=== PATIENT | female | born 1980 | race African-American/Black ===

== ENCOUNTER 2017-07-09 07:49 | Emergency (ER) | payer MEDICAID ==
[2017-07-09 07:56] VITALS: BP 129/70
--- NOTE | 2017-07-09 08:22 | ER Document Report ---
ED General - General Chief Complaint: Arm Problem Stated Complaint: ARM PAIN Time Seen by Provider: 07/09/17 08:03 Notes: 36-year-old female [id number] obese lady presents with right shoulder pain, posterior lateral worse with movement unable to elevate her arm now, onset 3 days ago and worsening. She cannot sleep on that side. She denies injuries. She denies gout. No fevers or chills. No numbness or tingling in the hand. Has neck pain or history of surgical critical apathy. - Related Data Allergies/Adverse Reactions: amoxicillin Allergy (Verified 07/09/17 08:15) Past Medical History - Social History Smoking Status: Unknown if Ever Smoked Chew tobacco use (# tins/day): No Frequency of alcohol use: None Drug Abuse: None Family History: None Patient has suicidal ideation: No Patient has homicidal ideation: No Renal/ Medical History: Denies: Hx Peritoneal Dialysis Review of Systems - Review of Systems Notes: REVIEW OF SYSTEMS GEN: Denies fever, chills, weight loss ENT: Denies sore throat, nasal discharge, ear pain EYES: Denies blurry vision, eye pain, discharge CV: Denies chest pain, palpitations, edema RESP: Denies cough, shortness of breath, wheezing GI: Denies abdominal pain, nausea, vomiting, diarrhea MSK: Right shoulder pain SKIN: Denies rash, skin lesions LYMPH: Denies swollen glands/lymph nodes NEURO: Denies headache, focal weakness or numbness, dizziness PSYCH: Denies depression, suicidal or homicidal ideation PHYSICAL EXAMINATION General: No acute distress, well-nourished Head: Atraumatic, normocephalic ENT: Mouth normal, oropharynx moist, no exudates or tonsillar enlargement Eyes: Conjunctiva normal, pupils equal, lids normal Neck: No JVD, supple, no guarding CVS: Normal rate, regular rhythm, no murmurs Resp: No resp distress, equal and normal breath sounds bilaterally GI: Nondistended, soft, no tenderness to palpation, no rebound or guarding Ext: No deformities, no edema, redness of the anterior lateral shoulder without crepitus. Decreased range of motion actively, passively she can range it almost all the way although with pain. No crepitus. T Back: No CVA or midline TTP Skin: No rash, warm Lymphatic: No lymphadeopathy noted Neuro: Awake, alert. Face symmetric. GCS 15. Normal finger spread thumbs up and sensation in the right hand Physical Exam - Vital signs Vitals: Temp Pulse Resp BP Pulse Ox 98.1 F 63 18 129/70 H 96 07/09/17 07:56 07/09/17 07:56 07/09/17 07:56 07/09/17 07:56 07/09/17 07:56 Course - Re-evaluation Re-evalutation: 07/09/17 08:19 Atraumatic right shoulder pain and obese female. Likely calcific tendinitis versus rotator cuff tendinopathy without injury. Doubt dislocation or neurologic optimize. Calcific tendinitis versus rotator cuff tendinopathy, doubt septic arthritis. X-ray Toradol reassess. 07/09/17 08:33 X-ray shows calcium deposits consideration is likely calcific tendinosis. NSAIDs or the referral. Discharge home with sling for comfort. I have discussed with the patient there likely diagnosis, aftercare plan, follow-up plans and my usual and customary return precautions. They verbalized understanding of this. - Vital Signs Vital signs: Temp Pulse Resp BP Pulse Ox 98.1 F 63 18 129/70 H 96 07/09/17 07:56 07/09/17 07:56 07/09/17 07:56 07/09/17 07:56 07/09/17 07:56 Discharge - Discharge Clinical Impression: Calcific tendinitis Shoulder pain, acute Qualifiers: Laterality: right Qualified Code(s): M25.511 - Pain in right shoulder Condition: Good Disposition: HOME, SELF-CARE Instructions: Rotator Cuff Injury ([facility]) Additional Instructions: I am referring you to orthopedics so that you may have further evaluation and therapy for your shoulder injury. Prescriptions: Ibuprofen 400 mg PO Q6 #30 tablet Referrals: GIOVANNI DECKER MD [ACTIVE STAFF] - Follow up in 1 week
--- NOTE | 2017-07-09 08:45 | RADIOLOGY REPORT (SQ) ---
EXAM DESCRIPTION: SHOULDER RIGHT 2 OR MORE VIEWS COMPLETED DATE/TIME: 07/09/2017 8:33 am REASON FOR STUDY: calcific tendonitis?? COMPARISON: None. NUMBER OF VIEWS: Three views. TECHNIQUE: Internal rotation, external rotation, and Y view images acquired of the right shoulder. LIMITATIONS: None. FINDINGS: MINERALIZATION: Normal. BONES: No acute fracture or dislocation. No worrisome bone lesions. No significant osteophytes. GLENOHUMERAL JOINT: No significant findings. ACROMIOCLAVICULAR JOINT: No large osteophytes. SOFT TISSUES: Calcium deposit along the expected location of the rotator cuff typical of calcific ten dinitis. VISUALIZED RIBS, SPINE, AND LUNG: No other significant finding. OTHER: No other significant finding. IMPRESSION: Calcific tendinitis. TECHNICAL DOCUMENTATION: JOB ID: [id number] [email or web address]- All Rights Reserved
== END 2017-07-09 08:47 | disposition home or self-care (01) ==
LOC: ER 07:49
DX: M75.31 Calcific tendinitis of right shoulder (principal); M25.511 Pain in right shoulder; E66.9 Obesity, unspecified; Z68.44 Body mass index [BMI] 60.0-69.9, adult; Z88.0 Allergy status to penicillin
CPT/HCPCS: 99283

== ENCOUNTER 2017-10-06 21:35 | Emergency (ER) | payer SELFPAY ==
--- NOTE | 2017-10-06 22:28 | RADIOLOGY REPORT (SQ) ---
EXAM DESCRIPTION: WRIST LEFT 3 VIEWS COMPLETED DATE/TIME: 10/06/2017 9:57 pm REASON FOR STUDY: Pain with movement COMPARISON: None. NUMBER OF VIEWS: Three views. TECHNIQUE: AP, lateral, and oblique radiographic images acquired of the left wrist. LIMITATIONS: None. FINDINGS: MINERALIZATION: Normal. BONES: No acute fracture or dislocation. 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 Normal ali gnment. SOFT TISSUES: No soft tissue swelling. No foreign body. OTHER: No other significant finding. IMPRESSION: NO RADIOGRAPHIC EVIDENCE OF ACUTE INJURY. TECHNICAL DOCUMENTATION: JOB ID: [id number] 2010 [employer]- All Rights Reserved Reading location - IP/workstation name: [facility]
[2017-10-06] MEDS ORDERED: OXYCODONE-ACETAMINOPHEN 5-325 MG TABLET PO ONE (23:03)
[2017-10-06] MEDS ORDERED: KETOROLAC TROMETHAMINE 60 MG/2 ML SDV IM ONE (23:03)
--- NOTE | 2017-10-06 23:08 | ER Document Report ---
HPI - HPI Patient complains to provider of: Left wrist pain Onset: Other - 2 days Onset/Duration: Persistent, Worse Quality of pain: Sharp Pain Level: 5 Context: Patient complains of left wrist pain for the past 2 days. Pain increases with any movement of her wrist. Patient denies any fever. Patient denies any history of IV drug use. Associated Symptoms: Other - Left wrist pain. denies: Fever Exacerbated by: Movement Relieved by: Remaining still Similar symptoms previously: No Recently seen / treated by doctor: No - ROS ROS below otherwise negative: Yes Systems Reviewed and Negative: Yes All other systems reviewed and negative - MUSCULOSKELETAL Musculoskeletal: REPORTS: Extremity pain - DERM Skin Color: Normal Skin Problems: None Past Medical History - General Information source: Patient - Social History Smoking Status: Current Every Day Smoker Smoking Education Provided: Yes Occupation: [employer] Family History: None - Medical History Medical History: Negative Renal/ Medical History: Denies: Hx Peritoneal Dialysis Past Surgical History: Reports: Hx Section Vertical Provider Document - CONSTITUTIONAL Agree With Documented VS: Yes Exam Limitations: No Limitations General Appearance: WD/WN, No Apparent Distress - INFECTION CONTROL TRAVEL OUTSIDE OF THE [place] IN LAST 30 DAYS: No - HEENT HEENT: Atraumatic, Normocephalic - NECK Neck: Normal Inspection - RESPIRATORY Respiratory: Breath Sounds Normal, No Respiratory Distress - CARDIOVASCULAR Cardiovascular: Regular Rate, Regular Rhythm Pulses: Normal: Radial - BACK Back: Normal Inspection - MUSCULOSKELETAL/EXTREMETIES Musculoskeletal/Extremeties: MAEW, Tender - Left wrist tenderness over volar aspect, no edema, normal skin color and temperature. Tenderness increases with flexion, extension, supination and pronation. Positive Tinel sign, No Edema. negative: Eccymosis - NEURO Level of Consciousness: Awake, Alert, Appropriate Motor/Sensory: No Motor Deficit - DERM Integumentary: Warm, Dry, No Rash Course - Re-evaluation Re-evalutation: 10/06/17 23:05 Reviewed patient's x-ray, no concern for fracture or obvious bony abnormality. No concern for septic joint or flexor tenosynovitis. Patient afebrile, joint is not hot red or swollen. Patient advised to follow-up with orthopedic doctor for further evaluation. Patient verbalized understanding and agrees with plan of care. Controlled substance database reviewed - Vital Signs Vital signs: Temp Pulse Resp BP Pulse Ox 98.5 F 66 20 151/78 H 96 10/06/17 22:09 10/06/17 22:09 10/06/17 22:09 10/06/17 22:09 10/06/17 22:09 - Diagnostic Test Radiology reviewed: Image reviewed, Reports reviewed Procedures - Immobilization Left Wrist Pre-Proc Neuro Vasc Exam: Normal Immobilizer type: Cock-up Performed by: RN Post-Proc Neuro Vasc Exam: Normal Alignment checked and good: Yes Discharge - Discharge Clinical Impression: Left wrist pain, Tendonitis Condition: Stable Disposition: HOME, SELF-CARE Instructions: Anti-Inflammatory Medication ([facility]), Oral Narcotic Medication ([facility] ), Temporary Splint ([facility]), Tendonitis ([facility]) Additional Instructions: Return immediately for any new or worsening symptoms Followup with your primary care provider, call tomorrow to make a followup appointment Wear splint for the next 4-5 days and then remove. Follow-up with orthopedic doctor for any continued pain or problems Avoid repetitive activities with wrist Prescriptions: Naproxen [Naprosyn 250 Nmg Tablet] 1 tab PO BID #14 tablet Oxycodone HCl/Acetaminophen [Percocet 5-325 mg Tablet] 1 tab PO ASDIR PRN #15 tablet PRN Reason: Forms: Smoking Cessation Education, Return to Work Referrals: [facility] [Provider Group] - Follow up as needed [facility] [Provider Group] - Follow up as needed [facility] [Provider Group] - 10/08/17
[2017-10-06 23:38] VITALS: BP 122/87
== END 2017-10-06 23:38 | disposition home or self-care (01) ==
LOC: ER 21:35
DX: M77.9 Enthesopathy, unspecified (principal); M25.532 Pain in left wrist; F17.200 Nicotine dependence, unspecified, uncomplicated
CPT/HCPCS: 99283; 96372; 73110; L3908; J1885

== ENCOUNTER 2019-04-27 11:28 | Emergency (ER) | payer SELFPAY ==
[2019-04-27] MEDS ORDERED: NORMAL SALINE 1000 ML 1,000 ML IV ONE ×3 (11:41→14:25)
[2019-04-27] MEDS ORDERED: ONDANSETRON HCL INJ/PF 4 MG/2 ML SDV IV ONE (11:41)
[2019-04-27] MEDS ORDERED: MORPHINE SULFATE 10 MG/ML INJ IV ONE (11:41)
--- NOTE | 2019-04-27 11:43 | ER Document Report ---
ED Medical Screen (RME) - General Chief Complaint: Vomiting Stated Complaint: VOMITING Time Seen by Provider: 04/27/19 11:38 Notes: Patient is a 38-year-old female who presents to the emergency department with a chief complaint of vomiting. Patient reports yesterday she did have right lower back pain and right flank pain. Patient reports she feels like she is having increased urinary frequency. Patient reports this morning she woke up and started vomiting about 1 hour prior to arrival. Patient reports she has nonstop vomiting for 1 hour. Patient states she has never had this happen to her before. Patient denies fever. Patient denies abdominal pain. TRAVEL OUTSIDE OF THE [place] IN LAST 30 DAYS: No - Related Data Allergies/Adverse Reactions: amoxicillin Allergy (Verified 07/09/17 08:15) Past Medical History Renal/ Medical History: Denies: Hx Peritoneal Dialysis Past Surgical History: Reports: Hx Section Physical Exam - Back Notes: Right CVA tenderness, tenderness to right lower back Course - Re-evaluation Re-evalutation: 04/27/19 11:42 Patient actively vomiting bile in triage. Will start basic labs, IV fluids and anti-nausea medication and pain medication. I have greeted and performed a rapid initial assessment of this patient. A comprehensive ED assessment and evaluation of the patient, analysis of test results and completion of the medical decision making process will be conducted by additional ED providers.
[2019-04-27 12:20] LABS: ABSOLUTE LYMPHOCYTES (AUTO) 1.8 10^3/uL (0.5-4.7); ABSOLUTE MONOCYTES (AUTO) 0.3 10^3/uL (0.1-1.4); ABSOLUTE NEUT (AUTO) 3.3 10^3/uL (1.7-8.2); BASOPHILS % (AUTO) 0.4 % (0-2); EOSINOPHILS % (AUTO) 0.8 % (0-6); HEMATOCRIT 37.9 % (36.0-47.0); HEMOGLOBIN 12.3 g/dL (12.0-15.5); LYMPHOCYTES % (AUTO) 32.6 % (13-45); MEAN CORPUSCULAR HEMOGLOBIN 26.6 pg (27.0-33.4); MEAN CORPUSCULAR HGB CONC 32.5 g/dL (32.0-36.0); MEAN CORPUSCULAR VOLUME 82 fl (80-97); MONOCYTES % (AUTO) 5.2 % (3-13); PLATELET COUNT 264 10^3/uL (150-450); RED BLOOD COUNT 4.64 10^6/uL (3.72-5.28); RED CELL DISTRIBUTION WIDTH 16.3 % (11.5-14.0); TOTAL CELLS COUNTED % (AUTO) 100 %; WHITE BLOOD COUNT 5.4 10^3/uL (4.0-10.5)
[2019-04-27 12:37] LABS: ALBUMIN 3.8 g/dL (3.5-5.0); ALKALINE PHOSPHATASE 55 U/L (38-126); ANION GAP 7 (5-19); ASPARTATE AMINO TRANSFERASE 18 U/L (14-36); BILIRUBIN,DIRECT 0.1 mg/dL (0.0-0.4); BILIRUBIN,TOTAL 0.3 mg/dL (0.2-1.3); BLOOD UREA NITROGEN 11 mg/dL (7-20); CARBON DIOXIDE 28 mmol/L (22-30); CHLORIDE 106 mmol/L (98-107); GLUCOSE 129 mg/dL (75-110); POTASSIUM 3.8 mmol/L (3.6-5.0); TOTAL PROTEIN 7.2 g/dL (6.3-8.2)
[2019-04-27] MEDS ORDERED: KETOROLAC TROMETHAMINE INJ/PF 30 MG/1 ML SDV IV ONE (12:44)
[2019-04-27 14:47] LABS: APPEARANCE,URINE CLOUDY; BILIRUBIN,URINE NEGATIVE (NEGATIVE); COLOR,URINE YELLOW; GLUCOSE, URINE NEGATIVE (NEGATIVE); KETONES,URINE NEGATIVE (NEGATIVE); LEUKOCYTE ESTERASE,URINE NEGATIVE (NEGATIVE); NITRITE,URINE NEGATIVE (NEGATIVE); PROTEIN,URINE NEGATIVE (NEGATIVE); URINE SPECIFIC GRAVITY 1.018; UROBILINOGEN,URINE NEGATIVE mg/dL (<2.0)
--- NOTE | 2019-04-27 15:45 | RADIOLOGY REPORT (SQ) ---
EXAM DESCRIPTION: CT ABD/PELVIS NO ORAL OR IV COMPLETED DATE/TIME: 04/27/2019 3:27 pm REASON FOR STUDY: Right flank pain with hematuria COMPARISON: None. TECHNIQUE: CT scan of the abdomen and pelvis performed without intravenous or oral contrast. Images reviewed with lung, soft tissue, and bone windows. Reconstructed coronal and sagittal MPR images revi ewed. All images stored on PACS. All CT scanners at this facility use dose modulation, iterative reconstruction, and/or weight based d osing when appropriate to reduce radiation dose to as low as reasonably achievable (ALARA). [facility]: Dose Right [facility]: CareDose [facility]: Dose Right [facility]: Teradose 4D [facility]: Smart [employer] RADIATION DOSE: CT Rad equipment meets quality standard of care and radiation dose reduction techniq ues were employed. CTDIvol: 19.2 mGy. DLP: 981 mGy-cm.mGy. LIMITATIONS: None. FINDINGS: LOWER CHEST: No consolidation or pleural effusion. NON-CONTRASTED LIVER, SPLEEN, ADRENALS: Evaluation limited by lack of IV contrast. The dome of the l iver is excluded from the [id number]. No identified significant acute findings. PANCREAS: No peripancreatic inflammatory changes. GALLBLADDER: There is cholelithiasis. RIGHT KIDNEY AND URETER: Assessment for masses limited by lack of IV contrast. There is a 1-2 mm gus cific focus at the inferior pole of the right kidney. There is mild right hydronephrosis and mild ri ght perinephric stranding. No obstructing ureteral calculus is identified. LEFT KIDNEY AND URETER: Assessment for masses limited by lack of IV contrast. No significant calcif ications. No hydronephrosis or hydroureter. AORTA AND RETROPERITONEUM: No abdominal aortic aneurysm. No retroperitoneal masses or hemorrhage. BOWEL AND PERITONEAL CAVITY: No dilated bowel loops or inflammatory changes. No free fluid. APPENDIX: Not visualized. PELVIS, BLADDER, AND ABDOMINAL WALL:The uterus is present. There are bilateral tubal ligation device s. No free fluid. Bladder decompressed. Small fat containing umbilical hernia. BONES: Multilevel degenerative changes at the spine . IMPRESSION: 1. Mild right perinephric stranding and mild right hydronephrosis, may be secondary to a recently passed calculus versus acute pyelonephritis. Please correlate with laboratory values/ urin alysis. 2. Right nephrolithiasis. 3. Cholelithiasis. COMMENT: Quality ID # [id number]: Final reports with documentation of one or more dose reduction techniques (e.g., Automated exposure control, adjustment of the mA and/or kV according to patient size, use of iterative reconstruction technique) TECHNICAL DOCUMENTATION: JOB ID: [id number] 2010 [employer]- All Rights Reserved Reading location - IP/workstation name: [email or web address]
[2019-04-27 16:47] VITALS: BP 131/97
--- NOTE | 2019-04-27 20:46 | ER Document Report ---
Entered by GOPI CURRY SCRIBE 04/27/19 1244 Acting as scribe for:JEANNINE RENNER MD ED General - General Chief Complaint: Flank Pain Stated Complaint: VOMITING Time Seen by Provider: 04/27/19 11:38 Mode of Arrival: Ambulatory Information source: Patient Notes: This 38 year old female patient presents to the emergency department complaining of flank pain and abdominal pain. Patient states that it began yesterday when she was eating cereal and she vomited twice. She walked around and it subsided however, this morning at 0900 she woke up and the pain returned. She attempted to get in the shower and the pain worsened, became "excruciating" which caused her to vomit again. Pertinent PMHx/PSHx: Denies having a history of kidney stones. Denies having any gallbladder problems. TRAVEL OUTSIDE OF THE [place] IN LAST 30 DAYS: No - Related Data Allergies/Adverse Reactions: amoxicillin Allergy (Verified 07/09/17 08:15) Past Medical History - General Information source: Patient - Social History Smoking Status: Never Smoker Cigarette use (# per day): No Chew tobacco use (# tins/day): No Frequency of alcohol use: None Drug Abuse: None Family History: None Patient has suicidal ideation: No Patient has homicidal ideation: No Past Surgical History: Reports: Hx Section Review of Systems - Review of Systems Constitutional: No symptoms reported EENT: No symptoms reported Cardiovascular: No symptoms reported Respiratory: No symptoms reported Gastrointestinal: See HPI, Abdominal pain, Vomiting Genitourinary: See HPI, Flank pain Female Genitourinary: No symptoms reported Musculoskeletal: No symptoms reported Skin: No symptoms reported Hematologic/Lymphatic: No symptoms reported Neurological/Psychological: No symptoms reported -: Yes All other systems reviewed and negative Physical Exam - Vital signs Vitals: Temp Pulse Resp Pulse Ox 97.4 F 52 L 18 97 04/27/19 12:53 04/27/19 12:53 04/27/19 12:53 04/27/19 12:53 Interpretation: Normal - General General appearance: Alert - HEENT Head: Normocephalic, Atraumatic Eyes: Normal Pupils: PERRL - Respiratory Respiratory status: No respiratory distress Chest status: Nontender Breath sounds: Normal Chest palpation: Normal - Cardiovascular Rhythm: Regular Heart sounds: Normal auscultation Murmur: No - Abdominal Inspection: Morbidly Obese Distension: No distension Bowel sounds: Normal Tenderness: Nontender Organomegaly: No organomegaly - Back Back: Tender - Lumbar musculature tenderness to palpation, Right side more tender than left. - Extremities General upper extremity: Normal inspection, Nontender, Normal color, Normal ROM, Normal temperature General lower extremity: Normal inspection, Nontender, Normal color, Normal ROM, Normal temperature, Normal weight bearing - Neurological Neuro grossly intact: Yes Cognition: Normal Orientation: AAOx4 [place] Coma Scale Eye Opening: Spontaneous [place] Coma Scale Verbal: Oriented [place] Coma Scale Motor: Obeys Commands [place] Coma Scale Total: 15 Speech: Normal Motor strength normal: LUE, RUE, LLE, RLE Sensory: Normal - Psychological Associated symptoms: Normal affect, Normal mood - Skin Skin Temperature: Warm Skin Moisture: Dry Skin Color: Normal Skin irregularity: negative: Rash Course - Re-evaluation Re-evalutation: 04/27/19 16:35 Patient most likely has a recently passed stone which fits with the mild hydronephrosis, the small stone seen in her right kidney, and the hematuria with too numerous to count RBCs in her urine and the patient is not on her period. Also seen were gallstones, but she has no symptoms that would suggest gallbladder issues at this time. - Vital Signs Vital signs: Temp Pulse Resp BP Pulse Ox 97.8 F 55 L 18 131/97 H 98 04/27/19 16:47 04/27/19 16:47 04/27/19 16:47 04/27/19 16:47 04/27/19 16:47 - Laboratory Result Diagrams: 04/27/19 11:56 04/27/19 11:56 Laboratory results interpreted by me: 04/27/19 04/27/19 04/27/19 11:56 11:56 14:26 [facility] 26.6 L RDW 16.3 H Glucose 129 H Urine Blood LARGE H - Diagnostic Test Radiology reviewed: Image reviewed, Reports reviewed - Noncontrast CT scan abdomen pelvis shows a small calculus in the right inferior kidney, mild hydronephrosis, mild perinephric stranding, all suspicious for recently passed stone. There are also gallstones noted. Discharge - Discharge Clinical Impression: Renal colic on right side Cholelithiasis Qualifiers: Cholelithiasis location: gallbladder Cholecystitis presence: without cholecystitis Biliary obstruction: without biliary obstruction Qualified Code(s): K80.20 - Calculus of gallbladder without cholecystitis without obstruction Condition: Stable Disposition: HOME, SELF-CARE Additional Instructions: Kidney Stone You are passing or have passed a kidney stone. These stones are usually due to increased calcium or uric acid concentrations in your urine. Stones within the kidney itself are not painful. The pain occurs as the stone leaves the kidney to pass down the long tube, called the ureter, leading to the bladder. If the stone is small, it will usually pass by itself. Most patients can pass the stone at home. You will usually receive medications for pain, nausea or vomiting, and sometimes a medication to assist in passing the kidney stone. However, if the pain is very severe or if vomiting prevents you from taking oral pain medications, you may need to return for further treatment. Drink three or four quarts of fluids per day. You will be given pain medication (if needed) and urine strainers. Strain all your urine to see if the stone passes. If your doctor has asked you to bring the stone in for analysis, return with the stone once it has passed. Return if pain or vomiting become severe, if you develop a high fever, if you are unable to pass your urine, or if other unusual symptoms occur. Gallstones: CT scan that we performed looking for kidney stones, also showed that you do have some gallstones. They are asymptomatic at this time and do not require any intervention. Eating a low-fat diet and avoiding fried foods would be the best way to prevent having problems with your gallbladder. Take the pain medication and nausea medicine as prescribed if needed. Drink plenty of fluids today and tomorrow. Follow-up with a primary care provider if not improving. RETURN TO THE EMERGENCY ROOM IF ANY NEW OR WORSENING SYMPTOMS. Prescriptions: Hydrocodone/Acetaminophen [[place] 5-325 mg Tablet] 1 tab PO Q4 PRN #12 tablet PRN Reason: Ondansetron [Zofran Odt 4 mg Tablet] 1 - 2 tab PO Q4H #10 tab.rapdis Forms: Return to Work Scribe Attestation: 04/27/19 13:28 I personally performed the services described in the documentation, reviewed and edited the documentation which was dictated to the scribe in my presence, and it accurately records my words and actions. I personally performed the services described in the documentation, reviewed and edited the documentation which was dictated to the scribe in my presence, and it accurately records my words and actions.
== END 2019-04-27 16:47 | disposition home or self-care (01) ==
LOC: ER 11:28
DX: K80.20 Calculus of gallbladder without cholecystitis without obstruction (principal); N13.30 Unspecified hydronephrosis; N20.0 Calculus of kidney; R10.9 Unspecified abdominal pain; R11.10 Vomiting, unspecified
CPT/HCPCS: 99284; 96361; 96374; 96375; 36415; 84703; 85025; 80053; 81001; 74176; J1885; J2270; J2405; J7030